=== PATIENT | male | born 1995 ===

== ENCOUNTER 2018-09-15 01:40 | Emergency (ER) | payer BC, MEDICAID ==
--- NOTE | 2018-09-15 01:52 | Emergency Department Record ---
History of Present Illness - General Chief Complaint: Suicide attempt Stated Complaint: SUICIDAL IDEATION Time Seen by Provider: 09/15/18 01:46 Source: Patient Mode of Arrival: With police Limitations: No limitations Travel/Exposure to [place] Within 21 Days of Symptoms: No - History of Present Illness Initial Comments: 23 yo male presents to ED for evaluation of attempted suicide this morning. Patient reports a history of anxiety and depression symptoms, reports that he has been "trying to make an appointment with a therapist for months" but has been unable to make the appointment. Patient reports a history of anxiety and depression at his baseline, denies medical health problems. Patient reports that he felt "worthless tonight, and that I just wanted to ". Patient attempted to cut his left wrist tonight and was standing outdoors in the cold for 60-90 minutes. Patient denies previous SI attempt. Patient has been out of his medications for 1 month. MD Complaint: Feels depressed, Suicidal ideation Onset/Timin -: Days(s) History of same: Yes Quality: Constant Improves With: None Worsens With: None Context: Not taking psychiatric medications Associated Symptoms: Denies other symptoms Treatments Prior to Arrival: None If Self Harm: Admits thoughts of self harm - Deb Coma Scale Eye Response: (4) Open spontaneously Motor Response: (6) Obeys commands Verbal Response: (5) Oriented Deb Total: 15 - Related Data Home Medications Medication Instructions Recorded Confirmed Last Taken Mirtazapine 15 mg PO DAILY 09/15/18 09/15/18 Unknown Olanzapine 10 mg PO DAILY 09/15/18 09/15/18 Unknown Paliperidone [Paliperidone ER] 3 mg PO DAILY 09/15/18 09/15/18 Unknown Review of Systems Constitutional: Denies: Chills, Fever, Malaise, Night sweats Eyes: Denies: Eye discharge, Eye pain ENT: Denies: Congestion, Ear pain, Epistaxis Respiratory: Denies: Cough, Dyspnea Cardiovascular: Denies: Chest pain, Dyspnea on exertion Endocrine: Denies: Fatigue, Heat or cold intolerance Gastrointestinal: Denies: Abdominal pain, Nausea, Vomiting Genitourinary: Denies: Incontinence, Retention Musculoskeletal: Denies: Arthralgia, Back pain Skin: Denies: Bruising, Change in color Neurological: Denies: Abnormal gait, Confusion, Headache, Seizure Psychiatric: Reports: Anxiety, Suicidal thoughts Hematological/Lymphatic: Denies: Anemia, Blood Clots Physical Exam - General General Appearance: Alert, Oriented x3, Cooperative, No acute distress Limitations: No limitations - Head Head exam: Atraumatic, Normocephalic, Normal inspection Head exam detail: negative: Abrasion, Contusion, Chinchilla's sign, General tenderness, Hematoma, Laceration - Eye Eye exam: Normal appearance. negative: Conjunctival injection, Periorbital swelling, Periorbital tenderness, Scleral icterus - ENT Ear exam: negative: Auricular hematoma, Auricular trauma Nasal Exam: negative: Active bleeding, Discharge, Dried blood, Foreign body Mouth exam: negative: Drooling, Laceration, Muffled voice, Tongue elevation - Neck Neck exam: Normal inspection. negative: Meningismus, Tenderness - Respiratory Respiratory exam: Normal lung sounds bilaterally. negative: Rales, Respiratory distress, Rhonchi, Stridor - Cardiovascular Cardiovascular Exam: Normal rhythm, Normal heart sounds, Tachycardia - GI/Abdominal GI/Abdominal exam: Soft. negative: Rebound, Rigid, Tenderness - Rectal Rectal exam: Deferred - exam: Deferred - Extremities Extremities exam: Other (Superficail abrasions to the dorsal and volar aspect of the left forearm, none requiring repair.). negative: Pedal edema, Tenderness - Back Back exam: Denies: CVA tenderness (R), CVA tenderness (L) - Neurological Neurological exam: Alert, Normal gait, Oriented X3 - Psychiatric Psychiatric exam: Depressed, Flat affect - Skin Skin exam: Abrasion Type of lesion: abrasion Course Vital Signs 09/15/18 01:43 Temperature 97.6 F Pulse Rate [ 123 H Pulse Ox Probe] Respiratory 20 Rate Blood Pressure 144/93 [Left Arm] Pulse Ox 100 - Reevaluation(s) Reevaluation #1: 09/15/18 01:53 Will perform medical clearance in ED. Certification and application will be completed following medical clearance for psychiatric placement. Reevaluation #2: 09/15/18 01:56 Police talked with the patient's mother, mother reports that the patient has a history of bipolar and schizophrenia, has been off his meds for approximately 4- 6 weeks. Patient called police to reports suicidal attempt, brought to ED for evaluation. Reevaluation #3: 09/15/18 02:25 Laboratory studies were reviewed: UDS positive for Cannabis, Oxycodone Labs are otherwise grossly unremarkable for an acute process. Will contact [facility] for evaluation. Reevaluation #4: 09/15/18 02:28 Case was discussed with Smiley ([facility]), will fax the patient's medical clearance form and all results for review. Reevaluation #5: 09/15/18 03:00 Patient was reassessed and is currently sleeping. All records have been faxed to [facility] for review. 09/15/18 03:50 Patient has been accepted by [facility], awaiting EMS transfer to [facility] at this time. Medical Decision Making - Lab Data Result diagrams: 09/15/18 01:50 09/15/18 01:50 Disposition Disposition: Transfer Clinical Impression: Suicide attempt Depression (emotion) Qualifiers: Depression Type: unspecified Qualified Code(s): F32.9 - Major depressive disorder, single episode, unspecified Disposition: Acute Care Hospital Transfer Transfer To: [facility] Reason For Transfer: Certification/Application Accepting Physician: [facility] Time Discussed w/Accepting Physician: 03:01 Condition: (2) Stable Forms: Patient Portal Access Time of Disposition: 03:01 Quality - Quality Measures Quality Measures: N/A - Blood Pressure Screening Does Patient Have Any of the Following: No Blood Pressure Classification: Hypertensive Reading Systolic Measurement: 144 Diastolic Measurement: 93 Screening for High Blood Pressure: < First Hypertensive BP, F/U Documented > [ [id number]] First Hypertensive Follow-up Interventions: Referral to alternative/primary care provider.
[2018-09-15 02:01] LABS: BASO % 0.5 % (0-6); EOS % 0.7 % (0-6); HEMATOCRIT 47.8 % (42.0-52.0); HEMOGLOBIN 16.4 gm/dl (14.0-18.0); LYMPH % 26.1 % (16-45); MEAN CELL VOLUME 89.8 fl (81-97); MEAN CORPUSCULAR HEMOGLOBIN 30.8 pg (27-33); MEAN CORPUSCULAR HGB CONC 34.3 g/dl (32-36); MEAN PLATELET VOLUME 11.5 fl (7.4-10.4); MONO % 5.7 % (0-9); PLATELET COUNT 234 K/uL (130-400); RED BLOOD COUNT 5.32 M/uL (4.40-5.70); RED CELL DISTRIBUTION WIDTH 13.1 % (11.5-14.5); WHITE BLOOD COUNT W/O DIFF 10.2 K/uL (4.2-12.2)
[2018-09-15 02:02] LABS: AMPHETAMINE SCREEN URINE NOT DETECTED; BARBITURATE SCREEN URINE NOT DETECTED; BENZODIAZEPINE SCREEN URINE NOT DETECTED; COCAINE SCREEN URINE NOT DETECTED; METHADONE SCREEN URINE NOT DETECTED; OPIATE SCREEN URINE NOT DETECTED; PHENCYCLIDINE SCREEN URINE NOT DETECTED; THC SCREEN URINE DETECTED; TRICYCLIC ANTIDEPRESSANT SCRN NOT DETECTED
[2018-09-15 02:03] LABS: METHAMPHETAMINE SCREEN NOT DETECTED; OXYCODONE SCREEN URINE DETECTED; PROPOXYPHENE SCREEN URINE NOT DETECTED
[2018-09-15 02:12] LABS: BLOOD UREA NITROGEN 10 mg/dL (6-20); CREATININE 0.7 mg/dL (0.7-1.2); EST GLOMERULAR FILTRATION RATE > 60 mL/min
[2018-09-15 02:14] LABS: GLUCOSE,RANDOM 114 mg/dL (74-109)
[2018-09-15 02:17] LABS: ALB/GLOB RATIO 1.8 (1.1-1.8); ALBUMIN 5.1 g/dL (4.0-5.0); ALKALINE PHOSPHATASE 66 U/L (40-129); ALT/SGPT 20 U/L (<41); AST/SGOT 21 U/L (10.0-50.0)
[2018-09-15 02:18] LABS: ACETAMINOPHEN < 5.0 ug/mL (10.0-30.0); SALICYLATE < 0.3 mg/dL (2.8-20)
[2018-09-15 02:28] LABS: THYROID STIMULATING HORMONE 0.81 uIU/mL (0.270-4.20)
== END 2018-09-15 04:48 | disposition short-term general hospital (02) ==
LOC: ER 01:40
DX: S50.812A Abrasion of left forearm, initial encounter (principal); F32.9 Major depressive disorder, single episode, unspecified; F20.9 Schizophrenia, unspecified; X78.8XXA Intentional self-harm by other sharp object, initial encounter; Y92.009 Unspecified place in unspecified non-institutional (private) residence as the place of occurrence of the external cause
CPT/HCPCS: 80053; 80305; 80320; 80329; 84443; 85025; 99285